=== PATIENT | female | born 1950 | race Caucasian/White ===

== ENCOUNTER → 2018-01-12 | Outpatient (REF) | payer BC, MEDICARE | LOC: M LAB REF 10:39 | DX: Z12.11 Encounter for screening for malignant neoplasm of colon (principal) | CPT/HCPCS: 82270 ==

== ENCOUNTER → 2018-12-17 | Outpatient (CLI) | payer MEDICARE ==
[2018-12-17 18:11] LABS: BLOOD UREA NITROGEN 16 MG/DL (7-18); CREATININE FOR GFR 0.89 MG/DL (0.55-1.30); GLOMERULAR FILTRATION RATE > 60.0 (>45)
== END ==
LOC: M LAB 16:47
PROVIDERS: ATTEND Family Medicine
DX: I10 Essential (primary) hypertension (principal)

== ENCOUNTER → 2021-01-05 | Outpatient (CLI) | payer MEDICARE ==
--- NOTE | 2021-01-05 13:32 | REP ---
INDICATION: LLQ ABD/PELVIC PAIN ? UTERINE VS HERNIA. COMPARISON: None. TECHNIQUE: Transabdominal and transvaginal scanning performed. FINDINGS: The inguinal regions are imaged at rest and with Valsalva maneuver. No inguinal hernia is seen bilaterally. No mass or fluid collection is seen in the inguinal regions bilaterally. The urinary bladder measures 11.4 x 6.3 x 8.6 cm, with no wall thickening, mass or calculus. Patient has had a prior hysterectomy and bilateral salpingo oophorectomy. There is no adnexal mass identified. No free fluid is seen in the cul-de-sac. IMPRESSION: Negative pelvic ultrasound. No mass or free fluid seen. No evidence of inguinal hernia bilaterally. <Electronically signed by Samson Rodriguez > 01/05/21 [id number]
== END ==
LOC: M RAD 12:54
PROVIDERS: ATTEND Nurse Practitioner Family
DX: R10.30 Lower abdominal pain, unspecified (principal)

== ENCOUNTER → 2021-02-01 | Outpatient (CLI) | payer MEDICARE ==
--- NOTE | 2021-02-01 13:01 | REP ---
INDICATION: ABD PAIN COMPARISON: None. TECHNIQUE: Helical scanning is acquired and 3 mm axial images were reformatted. Coronal and sagittal MPR images were generated and reviewed. FINDINGS: Preliminary digital community outreach manager radiograph demonstrates an unremarkable bowel gas pattern. There is a zone of linear fibrosis in the left lung base. The lung bases are otherwise clear. There is no evidence of pleural effusion or upper abdominal ascites. There is a small peripheral cyst in the right lobe of the liver adjacent to the posterior leaf of the diaphragm. This measures 9 mm in diameter. There is a similar size cyst anteriorly adjacent to the diaphragm and another 1 cm cyst is seen in the left lobe of the liver. There is a low-density lesion in the posterior segment of the right lobe of the liver which is not a simple cyst. This measures 2.7 cm in greatest diameter. This is of uncertain significance. The liver is not enlarged. The spleen is normal in size homogeneous in texture. There is a small sliding-type hiatal hernia. Normal adrenal glands are seen. No abnormality is noted in the pancreas or the gallbladder. The kidneys are morphologically intact. No intrarenal calculus or hydronephrosis is visible. No retroperitoneal mass or adenopathy is seen. 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 This measures 1.4 cm in greatest diameter. The uterus is surgically absent. No ovarian mass is seen. No free fluid is noted. There is evidence of previous left inguinal hernia repair. No abnormal fluid collection or free air is seen. No obstructive gastrointestinal lesion is seen. No abdominal wall defect is observed. IMPRESSION: There is a low-density lesion in the posterior aspect of the right lobe of the liver 2.7 cm in diameter of uncertain significance. There are several benign a Paddock cysts. Recommend MRI scanning of the liver without and with IV gadolinium for further evaluation. Post hysterectomy and left inguinal herniorrhaphy. Otherwise no acute abnormality. No urinary tract calculus. <Electronically signed by Manuel Morrison > 02/01/21 [id number]
== END ==
LOC: M PLAIMG 12:17
PROVIDERS: ATTEND Family Medicine
DX: R10.30 Lower abdominal pain, unspecified (principal); K76.89 Other specified diseases of liver

== ENCOUNTER → 2021-03-05 | Outpatient (CLI) | payer MEDICARE ==
[~2021-03-05] MED LIST: PROHANCE 279.3MG/ML 15ML VIAL ONE
--- NOTE | 2021-03-05 15:23 | REP ---
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 COMPARISON: Comparison CT study is from February 01, 2021.. TECHNIQUE: Axial and coronal T1 and T2 weighted sequences include spin echo, gradient echo, and dynamically acquired sequential postcontrast sequences. The gadolinium enhancement dose is 13 mL of intravenous ProHance. FINDINGS: There are 4 5 small hepatic cysts noted as seen on CT. No abnormality is noted in the gallbladder. No biliary ductal dilation is appreciated. The pancreas is unremarkable. No splenic lesion is seen. Normal adrenal glands are observed. This measures 2.5 cm craniocaudal by 2.8 cm medial to lateral by 1.8 cm anterior to posterior. It is characterized by slightly increased T2 signal, decreased T1 signal, and heterogeneous post gadolinium enhancement. It does not fit criteria for a benign hemangioma and is of uncertain etiology. There is a small cyst in the lower pole the right kidney which appears to be simple cyst. Study is otherwise unremarkable. IMPRESSION: MR study confirms the presence of a heterogeneous enhancing mass in the posterior segment of the right lobe of the liver subcapsular in distribution uncertain etiology. Malignancy cannot be excluded. Consider ultrasound or CT guided needle biopsy. There are small simple liver cysts and a lower pole cyst is seen in the right kidney. Otherwise negative. <Electronically signed by Manuel Morrison > 03/05/21 [id number]
== END ==
LOC: M PLAIMG 13:52
PROVIDERS: ATTEND Family Medicine
DX: R93.2 Abnormal findings on diagnostic imaging of liver and biliary tract (principal); K76.89 Other specified diseases of liver; N28.1 Cyst of kidney, acquired
CPT/HCPCS: 74183; A9576

== ENCOUNTER → 2022-03-28 | Outpatient (CLI) | payer MEDICARE ==
[~2022-03-28] MED LIST changes: +ATOR1TAB21; +ESTR10TA; +IRBE150T14; +PRESCAP PO; -PROHANCE 279.3MG/ML 15ML VIAL ONE; +VITA100093 PO
== END ==
LOC: M LABSMTC 10:44
PROVIDERS: ATTEND Anesthesiology
DX: Z01.818 Encounter for other preprocedural examination (principal); Z11.52 Encounter for screening for COVID-19

== ENCOUNTER 2022-04-01 06:48 | Day surgery (SDC) | payer MEDICARE ==
[~2022-04-01] VITALS: Ht 149.9 cm; Wt 64.4 kg
[~2022-04-01 06:48] MED LIST changes: +NS 1,000 ML IV ONE
[2022-04-01] MEDS ORDERED: propofoL 200 MG/20 ML VIAL As Ordered ONE ×2 (07:00→07:45)
[2022-04-01] MEDS ORDERED: LIDOCAINE 2% 100MG/5ML SDV (FOR ANES.) As Ordered ONE (07:00)
[2022-04-01 08:39] VITALS: BP 125/62
== END 2022-04-01 08:39 | disposition home or self-care (01) ==
LOC: M OPP 06:48
PROVIDERS: ATTEND Internal Medicine Gastroenterology
DX: Z12.11 Encounter for screening for malignant neoplasm of colon (principal); K63.5 Polyp of colon; K64.4 Residual hemorrhoidal skin tags; K64.8 Other hemorrhoids; I10 Essential (primary) hypertension; E78.5 Hyperlipidemia, unspecified; Z80.6 Family history of leukemia; Z79.02 Long term (current) use of antithrombotics/antiplatelets; Z79.818 Long term (current) use of other agents affecting estrogen receptors and estrogen levels; Z79.899 Other long term (current) drug therapy

== ENCOUNTER → 2023-04-03 | Outpatient (CLI) | payer MEDICARE ==
[~2023-04-03] MED LIST changes: -NS 1,000 ML IV ONE
== END ==
LOC: M PLAIMG 08:31
PROVIDERS: ATTEND Physician Assistant
DX: S83.241A Other tear of medial meniscus, current injury, right knee, initial encounter (principal); M25.461 Effusion, right knee; M25.462 Effusion, left knee; S83.242A Other tear of medial meniscus, current injury, left knee, initial encounter